=== PATIENT | female | born 1960 | race Caucasian/White ===

== ENCOUNTER 2017-04-03 15:30 | Emergency (ER) | payer BC ==
[~2017-04-03] VITALS: Ht 167.6 cm; Wt 80.3 kg
[2017-04-03 16:01] VITALS: BP 128/74
== END 2017-04-03 16:43 | disposition home or self-care (01) ==
LOC: ER 15:30
DX: S76.011A Strain of muscle, fascia and tendon of right hip, initial encounter (principal); M19.90 Unspecified osteoarthritis, unspecified site; V49.69XA Unspecified car occupant injured in collision with other motor vehicles in traffic accident, initial encounter; Y93.89 Activity, other specified; Y99.8 Other external cause status; Y92.410 Unspecified street and highway as the place of occurrence of the external cause
CPT/HCPCS: 73502

== ENCOUNTER 2019-04-13 12:09 | Emergency (ER) | payer BC ==
[~2019-04-13] VITALS: Ht 167.6 cm; Wt 90.7 kg
[2019-04-13 12:16] VITALS: BP 152/76
[2019-04-13] MEDS ORDERED: TETANUS-DIPTH-ACEL PERTUSSIS 0.5ML SYRG IM ONE (13:30)
[2019-04-13] MEDS ORDERED: LIDOCAINE 1% HCL (LOCAL ANESTH.) INJ 20ML MDV IJ ONE (13:30)
== END 2019-04-13 14:05 | disposition home or self-care (01) ==
LOC: ER 12:09
DX: S41.112A Laceration without foreign body of left upper arm, initial encounter (principal); W54.0XXA Bitten by dog, initial encounter; Y93.89 Activity, other specified; Y92.89 Other specified places as the place of occurrence of the external cause; Y99.8 Other external cause status; M19.90 Unspecified osteoarthritis, unspecified site
CPT/HCPCS: 12002; 90471; 90715; 99283; J2001

== ENCOUNTER 2023-12-24 20:16 | Emergency (ER) | payer BC ==
[~2023-12-24] VITALS: Ht 172.7 cm; Wt 81.8 kg
[2023-12-24] MEDS: ONDANSETRON ODT 4 MG TAB PO ONE (21:00)
[2023-12-24 21:28] LABS: Basophils # (auto) 0 10 ^3/uL (0-0.2); Basophils % (auto) 0.5 % (0.0-2.0); Eosinophils # (auto) 0.2 10 ^3/uL (0-0.8); Eosinophils % (auto) 2.8 % (0.0-7.0); Hematocrit 35.8 % (36.0-46.0); Hemoglobin 12.1 g/dL (12.2-16.2); Lymphocytes # (auto) 2.4 10 ^3/uL (0.4-5.4); Lymphocytes % (auto) 30.1 % (10.0-50.0); Mean Corpuscular Hgb Conc. 33.7 g/dL (32.0-36.0); Mean Corpuscular Volume 97.9 fL (80.0-100.0); Monocytes # (auto) 0.4 10 ^3/uL (0-1.3); Monocytes % (auto) 4.6 % (0.0-12.0); Red Blood Cells 3.66 10^6/uL (4.0-5.20); White Blood Cell 8.1 10^3/uL (4.4-10.8)
[2023-12-24 21:46] LABS: Alanine Aminotransferase 45 U/L (7-40); Alkaline Phosphatase 34 U/L (46-116); Anion Gap 2 (5-15); Aspartate Aminotransferase 23 U/L (13-40); BUN/Creatinine Ratio 10.4 (10.0-20.0); Bilirubin, Total 0.3 mg/dL (0.2-1.0); Blood Urea Nitrogen 13 mg/dL (9-23); Calcium 10.3 mg/dL (8.7-10.4); Carbon Dioxide 29 mmol/L (20-30); Chloride 105 mmol/L (98-107); Glucose 105 mg/dL (74-106); Lipase 28 U/L (12-53); Sodium 136 mmol/L (136-145); Total Protein 6.2 g/dL (5.7-8.2)
[2023-12-24] MEDS: SODIUM CHLORIDE 0.9% 1,000 ML IV ONE (22:00)
[2023-12-24 22:03] VITALS: BP 106/49; PULSE 54; RESP 16; TEMP 97.8; O2SAT 96
[2023-12-25 02:19] LABS: Urine Bacteria None Seen /hpf (None Seen)
[2023-12-25 02:58] LABS: Urine Blood Negative /uL (Negative); Urine Clarity Clear (Clear); Urine Color Light-Yellow (Yellow); Urine Hyaline Cast MOD /lpf (0 - 2); Urine Mucus FEW (None Seen); Urine Protein, UAD Negative (Negative); Urine Specific Gravity 1.011 (1.001-1.035); Urine Urobilinogen Normal (Negative); Urine WBC 2 /hpf (0 - 5); Urine pH 5.5 (5.0-9.0)
[2023-12-25 03:08] LABS: Amphetamine Screen, Urine Neg (NEGATIVE); Barbiturate Scree,Urine Neg (NEGATIVE); Benzodiazephine Screen, Urine Neg (NEGATIVE)
[2023-12-25 03:09] LABS: Cannabinoid Screen, Urine Neg (NEGATIVE); Cocaine Screen, Urine Neg (NEGATIVE); Opiate Scree,Urine Neg (NEGATIVE); Phencyclidine Screen, Urine Neg (NEGATIVE)
== END 2023-12-25 03:21 | disposition left against medical advice (07) ==
LOC: EDBD 20:16 → ER 20:16
DX: I10 Essential (primary) hypertension (principal); G93.40 Encephalopathy, unspecified; I95.9 Hypotension, unspecified; R00.1 Bradycardia, unspecified; F19.10 Other psychoactive substance abuse, uncomplicated
CPT/HCPCS: 36415; 80053; 80307; 81001; 83605; 83690; 83880; 84484; 85025; 93005; 96360; 96361; 99284; J7030